=== PATIENT | male | born 1950 | race Caucasian/White ===

== ENCOUNTER → 2018-02-06 | Outpatient (REF) | payer MEDICARE | END | disposition home or self-care (01) | LOC: ULTRASND 13:26 | PROVIDERS: ATTEND Nurse Practitioner Family | DX: E04.1 Nontoxic single thyroid nodule (principal) ==

== ENCOUNTER 2018-04-24 09:22 | Day surgery (SDC) | payer MEDICARE ==
[~2018-04-24 09:22] MED LIST: APPLE CIDER VI300 MG PO; ASPIRIN81 MG PO; MULTI VIT PO; ZYRTEC10 MG PO
[2018-04-24 12:12] VITALS: BP 116/65
== END 2018-04-24 12:24 | disposition home or self-care (01) ==
LOC: ENDO 09:22
PROVIDERS: ATTEND Surgery
PROC: 0DJD8ZZ Inspection of Lower Intestinal Tract, Via Natural or Artificial Opening Endoscopic (ICD-10-PCS; principal; 2018-04-24)
DX: Z12.11 Encounter for screening for malignant neoplasm of colon (principal); K57.30 Diverticulosis of large intestine without perforation or abscess without bleeding

== ENCOUNTER 2018-05-05 12:58 | Emergency (ER) | payer MEDICARE ==
[~2018-05-05] VITALS: Ht 170.2 cm; Wt 97.7 kg
[2018-05-05 14:00] LABS: HEMATOCRIT 39.7 % (39.0-50.0); HEMOGLOBIN 13.6 g/dl (14.0-18.0); IMMATURE GRANULOCYTES 0.4 % (0.0-5.0); MEAN CELL VOLUME 96.6 fL CALC (80.0-100.0); MEAN CORPUSCULAR HGB 33.1 pG CALC (26.0-32.0); MEAN CORPUSCULAR HGB CONC 34.3 g/L CALC (32.0-36.0); NEUT# 9.93 thou/uL (1.82-7.42); RED BLOOD COUNT 4.11 mill/uL (4.70-6.10); RED CELL DISTRI WIDTH 12.6 % (11.5-15.5)
[2018-05-05 14:26] LABS: ALBUMIN 3.9 g/dL (3.2-5.0); ALKALINE PHOSPHATASE 98 u/l (38-126); ANION GAP 15 (6-22 (CALC)); BUN 19 mg/dL (8-23); BUN/CREATININE RATIO 18 (12-20 (CALC)); CARBON DIOXIDE 22 mmol/l (22-30); CHLORIDE 105 mmol/l (95-108); GFR > 60 ML/MIN (>=60 (CALC)); GFR FOR AFR.AMER. > 60 ML/MIN (>=60 (CALC)); LIPASE 65 u/l (23-300); SGOT/AST 30 u/l (19-48); SODIUM 138 mmol/l (137-146); TOTAL PROTEIN 6.9 g/dL (6.3-8.2)
[2018-05-05 16:26] LABS: URINE BILIRUBIN - DIPSTICK NEGATIVE (NEGATIVE); URINE BLOOD DIPSTICK TRACE-INTACT (NEGATIVE); URINE COLOR YELLOW; URINE GLUCOSE - DIPSTICK NEGATIVE (NEGATIVE); URINE KETONE NEGATIVE (NEGATIVE); URINE LEUK ESTERASE NEGATIVE (NEGATIVE); URINE NITRITE - DIPSTICK NEGATIVE (Negative); URINE PH 5.5 (4.5-8.0); URINE PROTEIN - DIPSTICK NEGATIVE (NEG-TRACE); URINE UROBILINOGEN - DIPSTICK 0.2 E.U./dL (0.2)
[2018-05-05] MEDS ORDERED: AUGMENTIN875TAB PO (17:26)
[2018-05-05 17:47] VITALS: BP 109/62
== END 2018-05-05 17:47 | disposition home or self-care (01) ==
LOC: ED 12:58
PROVIDERS: Family Medicine
DX: J02.9 Acute pharyngitis, unspecified (principal); R07.89 Other chest pain